=== PATIENT | male | born 1960 | race Caucasian/White ===

== ENCOUNTER 2016-07-19 18:19 | Emergency (ER) | payer OTHER ==
--- NOTE | 2016-07-19 19:40 | ER NURSING DOCUMENTATION ---
Nurse's Notes [facility] Name:Rashaad Landis Age:56 yrs Sex:Male :1960 Arrival Date:07/19/2016 Time:18:19 Bed2 Private MD: Diagnosis:Open Wound of Mouth Presentation: 07/19 18:25 Presenting complaint: Patient states: I have something in the roof of my mouth maybe an cb abscess for 5 days. Transition of care: Home. 18:25 Method Of Arrival: Private Vehicle cb 18:25 Acuity: AUGUSTO 4 cb Triage Assessment: 18:29 General: Appears distressed, well groomed, Behavior is cooperative. Pain: Complains of cb pain in hard palate, left buccal mucosa and right buccal mucosa Pain radiates to radiates into molars Pain currently is 8 out of 10 on a pain scale. EENT: Denies nasal congestion, discharge from mouth. Neuro: Level of Consciousness is awake, alert, Oriented to person, place, time, event. Cardiovascular: Pulses are 2+ in left radial artery. Respiratory: Airway is patent Trachea midline Respiratory effort is even, unlabored, Respiratory pattern is regular, symmetrical. GI: Reports anorexia. : No deficits noted. Derm: Denies rash or non healing wounds. Musculoskeletal: No deficits noted. Historical: - Allergies: Dilantin; - Home Meds: 1. Motrin Oral - PMHx: None; - PSHx: Tonsillectomy; - Tetanus: unknown. - Ebola Screening: : Patient negative for fever greater than or equal to 101.5 degrees Fahrenheit, and additional compatible Ebola Virus Disease symptoms. Patient denies exposure to infectious person. Patient denies travel to an Ebola-affected area in the 21 days before illness onset. No symptoms or risks identified at this time. . - Immunization history: Flu Vaccine None. - Social history: Smoking status: Patient uses chewing tobacco. Screenin:26 Infectious Disease Risk None. cb 18:26 Abuse screen: Denies threats or abuse. Denies injuries from another. Nutritional cb screening: No deficits noted. Vital Signs: 18:40 BP 161 / 98; Pulse 112; Resp 22; Temp 99.9; Pulse Ox 93% ; Weight 86.18 kg; Height 5 cb ft. 11 in. (180.34 cm); Pain 8/10; 18:40 Body Mass Index 26.50 (86.18 kg, 180.34 cm) cb ED Course: 18:20 Patient arrived in ED. madelaine 18:24 Cong Khan MD is Attending Physician. mer 18:25 Haley Rivera, RN is Primary Nurse. cb 18: Triage completed. cb 19: Valuables Remains with patient. cb Administered Medications: No medications were administered Outcome: 19:09 Discharge ordered by . jm 19:20 Discharged to home ambulatory. cb 19:20 Condition: stable 19:20 Discharge instructions given to patient, Instructed on discharge instructions, follow up and referral plans. Demonstrated understanding of instructions. 19:40 Patient left the ED. cb 07/20 13:29 Discharge F/U Call: Unable to reach: non-working number lp Signatures: Haley Rivera, RN RN Isabel Carrillo RN RN lp Srot, Camila, Reg Reg ds Cong Khan MD MD jm
--- NOTE | 2016-07-19 19:40 | ER PHYSICIAN DOCUMENTATION ---
Physician Documentation [facility] Name:Rashaad Landis Age:56 yrs Sex:Male :1960 Arrival Date:07/19/2016 Time:18:19 Bed2 Private MD: Cong Landis Disposition: 07/19/16 19:09 Discharged to Home/Self Care. Impression: Open Wound of Mouth. - Condition is Undetermined. - Medical Reconciliation form form. - Follow up: Private Physician; When: [facility]: Address: [address] [place] [id number] Call tomorrow at 7:30am for an appointment. ; Reason: Continuance of care. - Problem is new. - Symptoms are unchanged. - Notes: I am worried about mouth cancer. You need to follow up tomorrow. HPI: 07/19 18:46 This 56 yrs old Male presents to ER via Private Vehicle with complaints of jm Mouth Problem. 18:46 The patient presents with pain, swelling, ulceration. The problem is located in the jm hard palate. Onset: The symptom(s)/episode began/occurred 1 week(s) ago. Duration: The symptoms are continuous. Associated signs and symptoms: Pertinent positives: pain, swelling, Pertinent negatives: fever, inability to eat. Severity of symptoms: in the emergency department the symptoms are unchanged. The patient has not experienced similar symptoms in the past. The patient has not recently seen a physician. Pt here for a mass on his hard palate that he noted about a week ago. He's tried to poke it, but no puss came out. He's been very anxious and has not slept in a few days. . Historical: - Allergies: Dilantin; - Home Meds: 1. Motrin Oral - PMHx: None; - PSHx: Tonsillectomy; - Tetanus: unknown. - Ebola Screening: : Patient negative for fever greater than or equal to 101.5 degrees Fahrenheit, and additional compatible Ebola Virus Disease symptoms. Patient denies exposure to infectious person. Patient denies travel to an Ebola-affected area in the 21 days before illness onset. No symptoms or risks identified at this time. . - Immunization history: Flu Vaccine None. - Social history: Smoking status: Patient uses chewing tobacco. ROS: 18:50 Constitutional: Negative for fever. jm 18:50 ENT: Positive for mass. 18:50 Neck: Negative for swelling, swollen nodes. 18:50 Cardiovascular: Negative for chest pain. 18:50 Respiratory: Negative for cough, shortness of breath. 18:50 Psych: Positive for anxiety, insomnia. 18:50 All other systems are negative. Exam: 18:50 Constitutional: The patient appears alert, awake. jm 18:50 ENT: Mouth: Oral mucosa: Pt w 2x2cm ulcerative hard mass stuck on his hard palate, Posterior pharynx: Voice: is normal. 18:50 Neck: ROM/movement: is normal, Lymph nodes: no appreciated lymphadenopathy. 18:50 Cardiovascular: Rate: tachycardic, Rhythm: regular. 18:50 Neuro: Mentation: is normal, Memory: is normal. 18:50 Neuro: Abnormal movements: resting tremor, is located in the , hands. 18:50 Psych: Behavior/mood is pleasant, cooperative, anxious, Affect is calm. Vital Signs: 18:40 BP 161 / 98; Pulse 112; Resp 22; Temp 99.9; Pulse Ox 93% ; Weight 86.18 kg; Height 5 cb ft. 11 in. (180.34 cm); Pain 8/10; 18:40 Body Mass Index 26.50 (86.18 kg, 180.34 cm) cb MDM: 18:24 Patient medically screened. 18:53 Differential diagnosis: ulcer vs cancer. Data reviewed: vital signs, nurses notes, and jm as a result, I will initiate a consult, with an ENT specialist. Counseling: I had a detailed discussion with the patient and/or guardian regarding: the historical points, exam findings, and any diagnostic results supporting the discharge/admit diagnosis, the need for outpatient follow up, an ENT specialist, tomorrow. Physician consultation: SCOTT Dillard regarding need to evaluate the patient as soon as possible, and will see patient tomorrow. ED course: I am very concerned this pt has cancer. Dispensed Medications: No medications were administered Signatures: Haley Rivera, RN RN Cong Borrego MD MD jm
== END 2016-07-19 19:40 | disposition home or self-care (01) ==
LOC: ER 18:19
DX: K13.79 Other lesions of oral mucosa (principal); F17.220 Nicotine dependence, chewing tobacco, uncomplicated; G47.00 Insomnia, unspecified
CPT/HCPCS: 99281